=== PATIENT | female | born 1950 | race Caucasian/White ===

== ENCOUNTER → 2016-11-21 | Outpatient (CLI) | payer OTHER | LOC: FIMAGING 15:35 | PROVIDERS: ATTEND Family Medicine | DX: R22.1 Localized swelling, mass and lump, neck (principal); Z85.6 Personal history of leukemia ==

== ENCOUNTER → 2016-12-04 | Outpatient (CLI) | payer OTHER ==
[2016-12-05 15:32] LABS: FINAL DIAGNOSIS See Comments; MICROSCOPIC DESCRIPTION See Comments
== END ==
LOC: FIMAGING 14:58
PROVIDERS: ATTEND Internal Medicine Hematology & Oncology
DX: Z12.31 Encounter for screening mammogram for malignant neoplasm of breast (principal); R22.1 Localized swelling, mass and lump, neck; Z80.3 Family history of malignant neoplasm of breast; Z85.6 Personal history of leukemia
CPT/HCPCS: 88184-90; 88185-91; G0202

== ENCOUNTER → 2017-02-16 | Outpatient (CLI) | payer OTHER ==
[~2017-02-16] MED LIST: IOPAMIDOL (ISOVUE-300) 100 ML BTL ONE
== END ==
LOC: FIMAGING 13:36
PROVIDERS: ATTEND Otolaryngology
DX: R59.0 Localized enlarged lymph nodes (principal)
CPT/HCPCS: Q9967

== ENCOUNTER 2018-03-18 16:44 | Emergency (ER) | payer OTHER ==
[2018-03-18 17:27] LABS: PLATELET COUNT 518 10^3/uL (150-400)
[2018-03-18] MEDS ORDERED: LR IV ONE (17:27)
--- NOTE | 2018-03-18 17:36 | EDPHY ---
H & P Stated Complaint: high fever since sunday/rash hx CML Time Seen by Provider: 03/18/18 17:21 HPI/ROS: CHIEF COMPLAINT: Fever, rash HISTORY OF PRESENT ILLNESS: Patient is a 67-year-old female with a history of CML that is in remission who still takes sprycel daily. She reports that about 2 weeks ago she had abdominal pain and vomiting that resolved after couple of days but then about 5 days ago developed a rash throughout her torso that looks like a splotchy sunburn. Then this week and beginning on Sunday she developed a high fever up to 104 at home. She denies sore throat, cough, shortness of breath, runny nose etc. No headache. No chest pain. No abdominal pain currently. No vomiting or diarrhea. No open wounds. No urinary symptoms. Severity: Moderate Modifying factors: Tylenol as mild improvement on fever but makes her nauseous REVIEW OF SYSTEMS: Constitutional: denies: chills, fever, recent illness, recent injury EENTM: denies: blurred vision, double vision, nose congestion Respiratory: denies: cough, shortness of breath Cardiac: denies: chest pain, irregular heart rate, lightheadedness, palpitations Gastrointestinal/Abdominal: See HPI Genitourinary: denies: dysuria, frequency, hematuria, pain Musculoskeletal: denies: joint pain, muscle pain Skin: See HPI Neurological: denies: headache, numbness, paresthesia, tingling, dizziness, weakness Hematologic/Lymphatic: denies: blood clots, easy bleeding, easy bruising Immunologic/allergic: denies: HIV/AIDS, transplant 10 systems reviewed and negative except as noted EXAM: GENERAL: Well-appearing, well-nourished and in no acute distress. HEAD: Atraumatic, normocephalic. EYES: Pupils equal round and reactive to light, extraocular movements intact, sclera anicteric, conjunctiva are normal. ENT: TMs normal, nares patent, oropharynx clear without exudates. Moist mucous membranes. NECK: Normal range of motion, supple without lymphadenopathy or JVD. LUNGS: Breath sounds clear to auscultation bilaterally and equal. No wheezes rales or rhonchi. HEART: Regular rate and rhythm without murmurs, rubs or gallops. ABDOMEN: Soft, nontender, normoactive bowel sounds. No guarding, no rebound. No masses appreciated. BACK: No CVA tenderness, no spinal tenderness, step-offs or deformities EXTREMITIES: Normal range of motion, no pitting or edema. No clubbing or cyanosis. NEUROLOGICAL: Cranial nerves II through XII grossly intact. Normal speech, normal gait. 5/5 strength, normal movement in all extremities, normal sensation , normal reflexes PSYCH: Normal mood, normal affect. SKIN: Diffuse light rash on the left side of her abdomen and entire back. She states that it used to be on the right side of abdomen as well. Looks like a splotchy sunburn. It is not indurated. No weeping or scaling. Source: Patient Exam Limitations: No limitations - Personal History Current Tetanus Diphtheria and Acellular Pertussis (TDAP): Yes - Medical/Surgical History Hx Asthma: No Hx Chronic Respiratory Disease: No Hx Diabetes: No Hx Cardiac Disease: No Hx Renal Disease: No Hx Cirrhosis: No Hx Alcoholism: No Hx HIV/AIDS: No Hx Splenectomy or Spleen Trauma: No Other PMH: cml - Family History Significant Family History: No pertinent family hx - Social History Smoking Status: Never smoked Alcohol Use: None Drug Use: None Constitutional: Initial Vital Signs Temperature (C) 39.5 C H 03/18/18 16:51 Heart Rate 111 H 03/18/18 16:51 Respiratory Rate 20 03/18/18 16:51 Blood Pressure 151/86 H 03/18/18 16:51 O2 Sat (%) 93 03/18/18 16:51 O2 Delivery Mode Room Air Allergies/Adverse Reactions: No Known Allergies Allergy (Verified 03/18/18 16:50) Home Medications: Medication Instructions Recorded Dasatinib [Sprycel] 100 mg PO DAILY 12/16/15 Medical Decision Making - Diagnostics Imaging Results: Imaging Impressions Chest X-Ray 03/18/18 17:27 Impression: No acute cardiopulmonary process. ED Course/Re-evaluation: I spoke with Dr. Ricky Pedroza who is on-call for the oncology service. He will look into her chart and agrees with workup planned so far and will call back. 6:[address] Pedroza is here and is evaluated the patient. She told him that he recently started taking a Mobashi plum which changes the pH acid of your stomach. He suspects that this may be causing the drug rash. We are awaiting LFTs to assess for dress syndrome. 6:45 p.m. The patient is feeling better. Her LFTs are reassuring. She does not have eosinophilic. She is eager to go home. She will stop taking the spycel for now and follow up with [facility] tomorrow as Dr. Pedroza recommends. She is still febrile. We discussed antipyretics and she declined. Differential Diagnosis: Partial list of the Differential diagnosis considered include but were not limited to; urinary tract infection, viral infection, drug reaction and although unlikely based on the history and physical exam, I also considered pneumonia, meningitis, sepsis, neutropenic. I discussed these differential diagnoses and the plan with the patient as well as the usual and expected course. The patient understands that the diagnosis is provisional and that in medicine we are not always correct and that further workup is often warranted. Usual and customary warnings were given. All of the patient's questions were answered. The patient was instructed to return to the emergency department should the symptoms at all worsen or return, otherwise to followup with the physician as we discussed. - Data Points Laboratory Results: Laboratory Results 03/18/18 17:14 03/18/18 17:14 03/18/18 03/18/18 03/18/18 18:25 17:14 17:14 WBC RBC Hgb Hct MCV MCH MCHC RDW Plt Count MPV Neut % (Auto) Lymph % (Auto) [place] % (Auto) Eos % (Auto) Baso % (Auto) Nucleat RBC Rel Count Absolute Neuts (auto) Absolute Lymphs (auto) Absolute Monos (auto) Absolute Eos (auto) Absolute Basos (auto) Absolute Nucleated RBC Immature Gran % Immature Gran # PT 16.8 SEC H SEC (12.0-15.0) INR 1.34 H (0.83-1.16) APTT 43.1 SEC H SEC (23.0-38.0) VBG Lactic Acid Sodium Potassium Chloride Carbon Dioxide Anion Gap BUN Creatinine Estimated GFR Glucose Calcium Total Bilirubin 0.6 mg/dL mg/dL (0.1-1.4) Conjugated Bilirubin 0.2 mg/dL mg/dL (0.0-0.5) Unconjugated Bilirubin 0.4 mg/dL mg/dL (0.0-1.1) AST 19 IU/L IU/L (14-46) ALT 28 IU/L IU/L (9-52) Alkaline Phosphatase 86 IU/L IU/L (38-126) Total Protein 6.8 g/dL g/dL (6.3-8.2) Albumin 3.6 g/dL g/dL (3.5-5.0) Urine Color YELLOW Urine Appearance CLEAR Urine pH 7.0 (5.0-7.5) Ur Specific [place] 1.005 (1.002-1.030) Urine Protein NEGATIVE (NEGATIVE) Urine Ketones TRACE H (NEGATIVE) Urine Blood 2+ H (NEGATIVE) Urine Nitrate NEGATIVE (NEGATIVE) Urine Bilirubin NEGATIVE (NEGATIVE) Urine Urobilinogen 2.0 EU H EU (0.2-1.0) Ur Leukocyte Esterase 1+ H (NEGATIVE) Urine RBC 1-3 /hpf /hpf (0-3) Urine WBC 3-5 /hpf H /hpf (0-3) Ur Epithelial Cells TRACE /lpf /lpf (NONE-1+) Ur Renal Epithelial Cell TRACE /hpf H /hpf (NONE SEEN) Urine Glucose NEGATIVE (NEGATIVE) 03/18/18 03/18/18 03/18/18 17:14 17:14 17:10 WBC 13.87 10^3/uL H 10^3/uL (3.80-9.50) RBC 3.57 10^6/uL L 10^6/uL (4.18-5.33) Hgb 11.2 g/dL L g/dL (12.6-16.3) Hct 32.8 % L % (38.0-47.0) MCV 91.9 fL fL (81.5-99.8) MCH 31.4 pg pg (27.9-34.1) MCHC 34.1 g/dL g/dL (32.4-36.7) RDW 14.4 % % (11.5-15.2) Plt Count 518 10^3/uL H 10^3/uL (150-400) MPV 9.5 fL fL (8.7-11.7) Neut % (Auto) 89.2 % H % (39.3-74.2) Lymph % (Auto) 6.1 % L % (15.0-45.0) [place] % (Auto) 4.0 % L % (4.5-13.0) Eos % (Auto) 0.0 % L % (0.6-7.6) Baso % (Auto) 0.1 % L % (0.3-1.7) Nucleat RBC Rel Count 0.0 % % (0.0-0.2) Absolute Neuts (auto) 12.36 10^3/uL H 10^3/uL (1.70-6.50) Absolute Lymphs (auto) 0.85 10^3/uL L 10^3/uL (1.00-3.00) Absolute Monos (auto) 0.56 10^3/uL 10^3/uL (0.30-0.80) Absolute Eos (auto) 0.00 10^3/uL L 10^3/uL (0.03-0.40) Absolute Basos (auto) 0.02 10^3/uL 10^3/uL (0.02-0.10) Absolute Nucleated RBC 0.00 10^3/uL 10^3/uL (0-0.01) Immature Gran % 0.6 % % (0.0-1.1) Immature Gran # 0.08 10^3/uL 10^3/uL (0.00-0.10) PT INR APTT VBG Lactic Acid 0.9 mmol/L mmol/L (0.7-2.1) Sodium 129 mEq/L L mEq/L (135-145) Potassium 4.1 mEq/L mEq/L (3.3-5.0) Chloride 91 mEq/L L mEq/L (97-110) Carbon Dioxide 26 mEq/l mEq/l (22-31) Anion Gap 12 mEq/L mEq/L (8-16) BUN 13 mg/dL mg/dL (7-23) Creatinine 1.1 mg/dL H mg/dL (0.6-1.0) Estimated GFR 50 Glucose 115 mg/dL H mg/dL (70-100) Calcium 8.6 mg/dL mg/dL (8.5-10.4) Total Bilirubin Conjugated Bilirubin Unconjugated Bilirubin AST ALT Alkaline Phosphatase Total Protein Albumin Urine Color Urine Appearance Urine pH Ur Specific [place] Urine Protein Urine Ketones Urine Blood Urine Nitrate Urine Bilirubin Urine Urobilinogen Ur Leukocyte Esterase Urine RBC Urine WBC Ur Epithelial Cells Ur Renal Epithelial Cell Urine Glucose Medications Given: Discontinued Medications Lactated Ringer's (Lr) 1,800 mls @ 3,600 mls/hr 30 ml/kg infuse over 30 min ( 1800 ml) IV EDNOW ONE PRN Reason: Protocol Stop: 03/18/18 17:56 Last Admin: 03/18/18 17:38 Dose: 1,800 mls Departure - Departure Disposition: Home, Routine, Self-Care Clinical Impression: Drug reaction Qualifiers: Encounter type: initial encounter Qualified Code(s): T50.905A - Adverse effect of unspecified drugs, medicaments and biological substances, initial encounter Fever Qualifiers: Fever type: drug-induced Qualified Code(s): R50.2 - Drug induced fever Condition: Fair Instructions: Acute Rash (ED), Adverse Drug Reaction (ED) Referrals: Snehal Ocampo MD [Primary Care Provider] - As per Instructions Cesar Starks MD [Medical Doctor] - 1 day without fail
[2018-03-18 18:32] VITALS: BP 157/77
[2018-03-18 18:36] LABS: INR 1.34 (0.83-1.16); PROTIME(PATIENT) 16.8 SEC (12.0-15.0)
== END 2018-03-18 19:07 | disposition home or self-care (01) ==
DX: L27.0 Generalized skin eruption due to drugs and medicaments taken internally (principal); R50.2 Drug induced fever; T45.1X5A Adverse effect of antineoplastic and immunosuppressive drugs, initial encounter; C93.11 Chronic myelomonocytic leukemia, in remission; E86.9 Volume depletion, unspecified; Z79.899 Other long term (current) drug therapy
CPT/HCPCS: 96365